=== PATIENT | male | born 1985 | race African-American/Black ===

== ENCOUNTER 2023-05-26 15:03 | Emergency (ER) | payer OTHER ==
[2023-05-26 15:31] VITALS: BP 124/86; PULSE 70; RESP 18; TEMP 97.8; BMI 24.4
[2023-05-26] MEDS ORDERED: KETOROLAC TROMETHAMINE 30 MG/1 ML VIAL IM ONE (15:38)
[2023-05-26] MEDS ORDERED: KETOROLAC TROMETHAMINE 30 MG/1 ML VIAL ONE (15:42)
[2023-05-26] MEDS ORDERED: KETOROLAC TROMETHAMINE 15 MG/ML VIAL ONE (15:49)
[2023-05-26] MEDS: KETOROLAC TROMETHAMINE 15 MG/ML VIAL IVPUSH ONE (15:59)
[2023-05-26] MEDS ORDERED: MAG HYDROX/AL HYDROX/SIMETH 30 ML UNIT-DOSE CUP ONE (16:04)
[2023-05-26] MEDS ORDERED: LIDOCAINE 5% TOPICAL PATCH ONE (16:04)
[2023-05-26] MEDS ORDERED: FAMOTIDINE 20 MG TABLET ONE (16:04)
[2023-05-26] MEDS: FAMOTIDINE 10 MG TABLET PO ONE (16:08)
[2023-05-26] MEDS: MAG HYDROX/AL HYDROX/SIMETH 30 ML UNIT-DOSE CUP PO ONE (16:08)
[2023-05-26] MEDS: LIDOCAINE 5% TOPICAL PATCH TP ONE (16:08)
[2023-05-26 16:15] LABS: HEMATOCRIT 42.8 % (35.4-49); MCH 28.5 pg (25.7-33.7); MEAN CELL VOLUME 81.4 fl (80-96); MEAN PLT VOLUME 8.9 fl (7.5-11.1); PLATELET COUNT 183.2 10^3/uL (134-434); RBC 5.26 10^6/uL (4.00-5.60); RDW 14.5 % (11.9-15.9); WHITE BLOOD COUNT 10.5 10^3/uL (4.0-10.8)
[2023-05-26 16:26] LABS: ALBUMIN 4.7 g/dl (3.4-5.0); BILIRUBIN,TOTAL 0.4 mg/dl (0.2-1); CALCIUM 9.6 mg/dl (8.5-10.1); MAGNESIUM 1.9 mg/dL (1.8-2.4); POTASSIUM 3.8 mmol/L (3.5-5.1); TOT PROT 7.3 g/dl (6.4-8.2)
[2023-05-26 16:33] LABS: PLATELET ESTIMATE ADEQUATE
[2023-05-26] MEDS ORDERED: LIDOCAINE PATCH REMOVAL MC ONE (22:00)
== END 2023-05-26 18:01 | disposition home or self-care (01) ==
LOC: FER 15:03
PROC: 3E033NZ Introduction of Analgesics, Hypnotics, Sedatives into Peripheral Vein, Percutaneous Approach (ICD-10-PCS; principal; 2023-05-26)
DX: M54.6 Pain in thoracic spine (principal); R11.0 Nausea
CPT/HCPCS: 36415; 71045-TC-FY; 74018-TC-FY; 80053; 81003; 83690; 83735; 85027; 87086; 93005; 99285-25